=== PATIENT | male | born 1945 | race Caucasian/White ===

== ENCOUNTER 2017-08-26 08:31 | Emergency (ER) | payer MEDICARE, OTHER ==
[2017-08-26 08:47] VITALS: BP 161/88
[2017-08-26] MEDS: Sodium Chloride 0.9% 500 ML IV SCH (08:58)
[2017-08-26] MEDS: HYDROmorphone 1 MG/ML Syringe IVPUSH ONE (08:58)
[2017-08-26] MEDS: Ondansetron 4 MG/2 ML SDV IVPUSH ONE (09:02)
--- NOTE | 2017-08-26 09:28 | EDM.PDOC ---
ED HPI GENERAL MEDICAL PROBLEM - General Chief Complaint: Abdominal Pain Stated Complaint: LUQ abdominal pain Time Seen by Provider: 08/26/17 09:15 Source of Information: Reports: Patient History Limitations: Reports: No Limitations - History of Present Illness INITIAL COMMENTS - FREE TEXT/NARRATIVE: 71 YO WM presents to ER complaining of LUQ abdominal pain x 1 month. Pt reports history of diverticulitis in the remote past. Pt with associated nausea without vomiting and diarrhea without gross hematachexia. Pt denies fever/chills. Pt states his pain became more severe last night prompting ER evaluation. Onset Date: 08/25/17 Duration: Constant, Getting Worse, Recurring Location: Reports: Abdomen Quality: Reports: Ache Severity: Moderate Improves with: Reports: None Worsens with: Reports: None Associated Symptoms: Reports: Nausea/Vomiting. Denies: Chest Pain, Cough, cough w sputum, Fever/Chills, Shortness of Breath, Weakness - Related Data Allergies Allergy/AdvReac Type Severity Reaction Status Date / Time ciprofloxacin [From Cipro] Allergy Rash Verified 10/19/14 10:10 ciprofloxacin HCl Allergy Rash Verified 10/19/14 10:10 [From Cipro] Home Meds: Home Meds Aspirin [Low Dose Aspirin EC] 81 mg PO DAILY 10/19/14 [History] Cetirizine [ZyrTEC] 10 mg PO DAILY PRN 08/26/17 [History] Cholecalciferol (Vitamin D3) [Vitamin D3] 1,000 units PO DAILY 08/26/17 [History ] Escitalopram Oxalate 20 mg PO DAILY 08/26/17 [History] Finasteride 5 mg PO DAILY 08/26/17 [History] Ibuprofen [Ibu] 400 mg PO Q6H PRN 08/26/17 [History] Losartan [Cozaar] 100 mg PO DAILY 08/26/17 [History] Ondansetron [Zofran ODT] 4 mg PO Q6H PRN #5 tab.dis 08/26/17 [Rx] Sulfamethoxazole/Trimethoprim [Septra DS] 1 tab PO BID #20 tablet 08/26/17 [Rx] guaiFENesin [Guaifenesin] 200 mg PO TID PRN 08/26/17 [History] metroNIDAZOLE [Flagyl] 500 mg PO Q6HR #40 tablet 08/26/17 [Rx] traMADol HCl [Ultram] 50 mg PO Q6HR PRN #10 tablet 08/26/17 [Rx] ED ROS GENERAL - Review of Systems Review Of Systems: See Below Constitutional: Reports: No Symptoms HEENT: Reports: No Symptoms Respiratory: Reports: No Symptoms Cardiovascular: Reports: No Symptoms Endocrine: Reports: No Symptoms GI/Abdominal: Reports: Abdominal Pain, Diarrhea, Decreased Appetite, Flatus, Nausea. Denies: Black Stool, Bloody Stool, Hematemesis, Hematochezia, Melena, Stool Incontinence, Vomiting : Reports: No Symptoms Musculoskeletal: Reports: No Symptoms Skin: Reports: No Symptoms Neurological: Reports: No Symptoms Psychiatric: Reports: No Symptoms Hematologic/Lymphatic: Reports: No Symptoms Immunologic: Reports: No Symptoms ED EXAM, GI/ABD - Physical Exam Exam: See Below Exam Limited By: No Limitations General Appearance: Alert, WD/WN, No Apparent Distress Head: Atraumatic, Normocephalic Neck: Normal Inspection, Supple, Non-Tender, Full Range of Motion Respiratory/Chest: No Respiratory Distress, Lungs Clear, Normal Breath Sounds, No Accessory Muscle Use, Chest Non-Tender Cardiovascular: Normal Peripheral Pulses, Regular Rate, Rhythm, No Edema, No Gallop, No JVD, No Murmur, No Rub GI/Abdominal Exam: Normal Bowel Sounds, Soft, No Organomegaly, No Distention, No Abnormal Bruit, No Mass, Pelvis Stable, Tender (LUQ). No: Distended, Guarding, Rigid, Rebound, Abnormal Bowel Sounds, Hernia Back Exam: Normal Inspection, Full Range of Motion, NT Extremities: Normal Inspection, Normal Range of Motion, Non-Tender, Normal Capillary Refill, No Pedal Edema Neurological: Alert, Oriented, CN II-XII Intact, Normal Cognition, Normal Gait, Normal Reflexes, No Motor/Sensory Deficits Psychiatric: Normal Affect, Normal Mood Skin Exam: Warm, Dry, Intact, Normal Color, No Rash Lymphatic: No Adenopathy Course - Vital Signs Last Recorded V/S: Last Vital Signs Temp 37.3 C 08/26/17 08:42 Pulse 85 08/26/17 08:42 Resp 20 08/26/17 08:42 BP 161/88 H 08/26/17 08:42 Pulse Ox 94 L 08/26/17 08:42 - Orders/Labs/Meds Orders: Active Orders 24 hr Category Date Time Status Abdomen Pelvis w Cont [CT] Stat Exams 08/26/17 09:23 Ordered URINALYSIS W/MICROSCOPIC [UA W/MICROSCOPIC] [URIN] Stat Lab 08/26/17 08:50 Ordered Sodium Chloride 0.9% [Normal Saline] 50 ml Med 08/26/17 10:00 Active IV ASDIRECTED Sodium Chloride 0.9% [Normal Saline] 500 ml Med 08/26/17 09:00 Active IV .BOLUS Medication Orders Sodium Chloride (Normal Saline) 500 mls @ 999 mls/hr IV .BOLUS GUILLERMO Last Admin: 08/26/17 08:58 Dose: 999 mls/hr Sodium Chloride (Normal Saline) 50 mls @ 200 mls/hr IV ASDIRECTED GUILLERMO Labs: Laboratory Tests 08/26/17 08/26/17 08/26/17 Range/Units 08:45 08:45 08:50 WBC 8.8 (5.0-10.0) 10^3/uL RBC 5.51 (4.50-6.00) 10^6/uL Hgb 16.1 (13.0-17.0) g/dL Hct 48.1 (40.0-52.0) % MCV 87.3 (82.0-92.0) fL MCH 29.3 (27.0-31.0) pg MCHC 33.5 (32.0-36.0) g/dL RDW 12.5 (11.5-14.5) % Plt Count 259 (150-300) 10^3/uL MPV 8.1 (7.4-10.4) fL Neut % (Auto) 77.1 H (50.0-70.0) % Lymph % (Auto) 11.4 L (20.0-40.0) % [place] % (Auto) 7.7 (2.0-8.0) % Eos % (Auto) 2.5 (1.0-3.0) % Baso % (Auto) 1.3 H (0.0-1.0) % Neut # (Auto) 6.8 (2.5-7.0) 10^3/uL Lymph # (Auto) 1.0 (1.0-4.0) 10^3/uL Garrett # (Auto) 0.7 (0.1-0.8) 10^3/uL Eos # (Auto) 0.2 (0.1-0.3) 10^3/uL Baso # (Auto) 0.1 (0.0-0.1) 10^3/uL Sodium 141 (136-145) mmol/L Potassium 4.1 (3.3-5.3) mmol/L Chloride 106 (98-115) mmol/L Carbon Dioxide 24.9 (21.0-32.0) mmol/L BUN 15 (6-25) mg/dL Creatinine 0.90 (0.51-1.17) mg/dL Est Cr Clr Drug Dosing TNP Estimated GFR (MDRD) > 60 mL/min Glucose 98 (70-110) mg/dL Calcium 9.3 (8.7-10.3) mg/dL Total Bilirubin 0.6 (0.2-1.0) mg/dL AST 17 (15-37) U/L ALT 24 (12-78) U/L Alkaline Phosphatase 95 (46-116) IU/L Total Protein 7.4 (6.4-8.2) g/dL Albumin 3.75 (3.00-4.80) g/dL Lipase 75 (73-393) U/L Specimen Type Urinvoid Urine Color Yellow (YELLOW) Urine Appearance Clear (CLEAR) Urine pH 6.0 (5.0-9.0) Ur Specific [place] 1.020 (1.005-1.030) Urine Protein Negative (NEGATIVE) mg/dL Urine Glucose (UA) Negative (NEGATIVE) mg/dL Urine Ketones Negative (NEGATIVE) mg/dL Urine Occult Blood Trace-intact H (NEGATIVE) Urine Nitrite Negative (NEGATIVE) Urine Bilirubin Negative (NEGATIVE) Urine Urobilinogen 0.2 (0.2-1.0) E.U./dL Ur Leukocyte Esterase Negative (NEGATIVE) Urine RBC 0-5 /HPF Urine WBC 0-5 /HPF Ur Epithelial Cells Rare /LPF Urine Bacteria Not seen (NONE TO FEW) /HPF Urine Mucus Moderate H (NEGATIVE) /LPF Meds: Medications Generic Name Dose Route Start Last Admin Trade Name Freq PRN Reason Stop Dose Admin Sodium Chloride 500 mls @ 999 mls/hr 08/26/17 09:00 08/26/17 08:58 Normal Saline IV 999 mls/hr .BOLUS GUILLERMO Administration Sodium Chloride 50 mls @ 200 mls/hr 08/26/17 10:00 Normal Saline IV ASDIRECTED GUILLERMO Discontinued Medications Generic Name Dose Route Start Last Admin Trade Name Freq PRN Reason Stop Dose Admin Hydromorphone HCl 0.5 mg 08/26/17 08:49 08/26/17 08:58 Dilaudid IVPUSH 08/26/17 08:50 0.5 mg ONETIME ONE Administration Iopamidol 75 ml 08/26/17 09:50 Isovue-300 (61%) IV 08/26/17 09:51 ONETIME ONE Ondansetron HCl 4 mg 08/26/17 08:50 08/26/17 09:02 Zofran IVPUSH 08/26/17 08:51 4 mg ONETIME ONE Administration - Radiology Interpretation Free Text/Narrative:: CT abd/pelvis- Descending diverticulitis- uncomplicated Departure - Departure Time of Disposition: 10:47 Disposition: Home, Self-Care 01 Condition: Good Clinical Impression: Diverticulitis large intestine w/o perforation or abscess w/o bleeding Clinical Impression: (Ruled Out): Diverticulitis large intestine w/o perforation or abscess w/ bleeding - Discharge Information Prescriptions: metroNIDAZOLE [Flagyl] 500 mg PO Q6HR #40 tablet traMADol HCl [Ultram] 50 mg PO Q6HR PRN #10 tablet PRN Reason: Pain Ondansetron [Zofran ODT] 4 mg PO Q6H PRN #5 tab.dis PRN Reason: Nausea Sulfamethoxazole/Trimethoprim [Septra DS] 1 tab PO BID #20 tablet Instructions: Diverticulitis Referrals: PCP,Unknown [Primary Care Provider] - Forms: ED Department Discharge - My Orders Last 24 Hours: My Active Orders 08/26/17 08:50 URINALYSIS W/MICROSCOPIC [UA W/MICROSCOPIC] [URIN] Stat 08/26/17 09:00 Sodium Chloride 0.9% [Normal Saline] 500 ml IV .BOLUS 08/26/17 09:23 Abdomen Pelvis w Cont [CT] Stat 08/26/17 10:00 Sodium Chloride 0.9% [Normal Saline] 50 ml IV ASDIRECTED - Assessment/Plan Last 24 Hours: My Active Orders 08/26/17 08:50 URINALYSIS W/MICROSCOPIC [UA W/MICROSCOPIC] [URIN] Stat 08/26/17 09:00 Sodium Chloride 0.9% [Normal Saline] 500 ml IV .BOLUS 08/26/17 09:23 Abdomen Pelvis w Cont [CT] Stat 08/26/17 10:00 Sodium Chloride 0.9% [Normal Saline] 50 ml IV ASDIRECTED Assessment:: 1. uncomplicated descending diverticulitis Plan: 1. discharge home 2. septra DS BID x 10 days 3. Flagyl 500mg PO Q6 x 10 days 4. Ultram 50mg #10 Q6 PRN pain 5. zofran 4mg ODT #6 Q6 PRN nausea 6. follow up with PCP this week for further evaluation 7. return to ER for worsening symptoms
[2017-08-26 09:34] LABS: CHLORIDE,CL 106 mmol/L (98-115); SODIUM,NA 141 mmol/L (136-145)
[2017-08-26] MEDS ORDERED: traMADol 50 MG Tab PO PRN (10:51)
[2017-08-26] MEDS ORDERED: Ondansetron 4 MG Tab.DIS ONE (11:02)
[2017-08-26] MEDS: Sulfamethoxazole/Trimethoprim 800-160 MG Tab PO SCH (11:13)
[2017-08-26] MEDS: Ondansetron 4 MG Tab.DIS PO PRN (11:13)
[2017-08-26] MEDS: metroNIDAZOLE 500 MG Tab PO SCH (11:14)
[2017-08-26] MEDS: traMADol 50 MG Tab ONE (11:15)
[2017-08-26] MEDS: Iopamidol 612 MG/ML 75 ML Bottle IV ONE (11:30)
[2017-08-26] MEDS: Sodium Chloride 0.9% 50 ML IV SCH (11:30)
== END 2017-08-26 11:35 | disposition home or self-care (01) ==
LOC: KA.ED 08:31
DX: K57.32 Diverticulitis of large intestine without perforation or abscess without bleeding (principal); Z88.1 Allergy status to other antibiotic agents; Z79.82 Long term (current) use of aspirin; Z79.899 Other long term (current) drug therapy
CPT/HCPCS: 74177; 80053; 81001; 83690; 85025; 96374; 96375; 99284; A9270-GY; J1170; J2405; J7040; J7050; Q9967